=== PATIENT | male | born 1990 | race Caucasian/White ===

== ENCOUNTER 2019-12-08 12:13 | Emergency (ER) | payer OTHER ==
--- NOTE | 2019-12-08 14:09 | ED ---
Lower Extremity - HPI Summary HPI Summary: Patient is a 29 y/o M presenting to [facility] with complaints of left ankle pain. He reports that he was playing hockey and was reaching for a puck when he fell and injured his ankle. Patient is alert and oriented x3. On triage, pain is rated 7/10, nothing is noted to aggravate/alleviate Sx. Home medications and allergies are reviewed. - History of Current Complaint Chief Complaint: EDExtremityLower Stated Complaint: LT ANKLE INJ PER PT Time Seen by Provider: 12/08/19 13:48 Hx Obtained From: Patient Mechanism Of Injury: Fall From A Standing Position Onset of Pain: Prior to Arrival Onset/Duration: Still Present Severity Currently: Severe Pain Intensity: 7 Pain Scale Used: 0-10 Numeric Timing: Constant Location: Is Discrete @ - left ankle Aggravating Factor(s): Nothing Alleviating Factor(s): Nothing - Allergies/Home Medications Allergies/Adverse Reactions: Allergies Allergy/AdvReac Type Severity Reaction Status Date / Time Penicillins AdvReac See Comment Verified 12/08/19 12:25 PMH/Surg Hx/FS Hx/Imm Hx Sensory History: Denies: Hx Legally Blind, Hx Deafness Opthamlomology History: Denies: Hx Legally Blind EENT History: Denies: Hx Deafness Infectious Disease History: No Infectious Disease History: Denies: Traveled Outside the [place] in Last 30 Days - Family History Known Family History: Negative: Seizure Disorder - Social History Alcohol Use: Occasionally Substance Use Type: Reports: None Smoking Status (MU): Never Smoked Tobacco Review of Systems Musculoskeletal: Other - positive - left ankle pain, fall Neurological: Other - negative - AMS All Other Systems Reviewed And Are Negative: Yes Physical Exam - Summary Physical Exam Summary: VITAL SIGNS: Reviewed. GENERAL: Patient is a well-developed and nourished male who is lying comfortable in the stretcher. Patient is not in any acute respiratory distress. HEAD AND FACE: No signs of trauma. No ecchymosis, hematomas or skull depressions. No sinus tenderness. EYES: PERRLA, EOMI x 2, No injected conjunctiva, no nystagmus. EARS: Hearing grossly intact. Ear canals and tympanic membranes are within normal limits. MOUTH: Oropharynx within normal limits. NECK: Supple, trachea is midline, no adenopathy, no JVD, no carotid bruit, no c- spine tenderness, neck with full ROM. CHEST: Symmetric, no tenderness at palpation. LUNGS: Clear to auscultation bilaterally. No wheezing or crackles. CVS: Regular rate and rhythm, S1 and S2 present, no murmurs or gallops appreciated. ABDOMEN: Soft, non-tender. No signs of distention. No rebound, no guarding, and no masses palpated. Bowel sounds are normal. EXTREMITIES: Tenderness of the left lateral malleolus with decreased ROM secondary to pain. NEURO: Alert and oriented x 3. No acute neurological deficits. Speech is normal and follows commands. SKIN: Dry and warm. Triage Information Reviewed: Yes Vital Signs On Initial Exam: Initial Vitals Temp Pulse Resp BP Pulse Ox 100.4 F 94 16 110/73 99 12/08/19 12:21 12/08/19 12:21 12/08/19 12:21 12/08/19 12:21 12/08/19 12:21 Vital Signs Reviewed: Yes Procedures - Sedation Patient Received Moderate/Deep Sedation with Procedure: No Diagnostics - Vital Signs Vital Signs Temp Pulse Resp BP Pulse Ox 12/08/19 12:21 100.4 F 94 16 110/73 99 - Laboratory Lab Statement: Any lab studies that have been ordered have been reviewed, and results considered in the medical decision making process. - Radiology LEFT ANKLE X-RAY Radiology Interpretation Completed By: Radiologist Summary of Radiographic Findings: LEFT ANKLE X-RAY IMPRESSION: Some soft tissue swelling with no fracture identified. THIS REPORT WAS REVIEWED BY ED PHYSICIAN. LEFT FOOT X-RAY Radiology Interpretation Completed By: Radiologist Summary of Radiographic Findings: LEFT FOOT X-RAY IMPRESSION: NO FRACTURE IDENTIFIED. THIS REPORT WAS REVIEWED BY ED PHYSICIAN. Lower Extremity Course/Dx - Course Assessment/Plan: Patient is a 29 y/o M presenting to [facility] with complaints of left ankle pain. He reports that he was playing hockey and was reaching for a puck when he fell and injured his ankle. Patient is alert and oriented x3. On triage, pain is rated 7/10, nothing is noted to aggravate/alleviate Sx. Home medications and allergies are reviewed. Ankle x-ray impression: Soft tissue swelling without fracture or dislocation. Foot the x-ray impression: No fracture identified. In the ED course the patient was given ibuprofen. The patient was placed in Ciro bandage and gel cast and given crutches and discharged home with follow-up primary care physician. Patient is hemodynamically stable alert and oriented 3. - Diagnoses Differential Diagnosis/HQI/PQRI: Positive: Fracture (Closed), Sprain, Strain Provider Diagnoses: Left ankle sprain Discharge ED - Sign-Out/Discharge Documenting (check all that apply): Patient Departure - discharge - Discharge Plan Condition: Stable Disposition: HOME Patient Education Materials: Ankle Sprain (ED) Referrals: [facility] - Ariel KING [Primary Care Provider] - 3 Days Additional Instructions: PLEASE RETURN TO ED FOR ANY NEW OR WORSENING SYMPTOMS. PLEASE FOLLOW UP WITH YOUR PRIMARY CARE PHYSICIAN WITHIN THREE DAYS. - Billing Disposition and Condition Condition: STABLE Disposition: Home - Attestation Statements Document Initiated by Eulogioibe: Yes Documenting Scribe: NATALIIA OVIEDO Provider For Whom Alexandra is Documenting (Include Credential): CLIFTON CASEY MD Scribe Attestation: NATALIIA Kat, scribed for CLIFTON CASEY MD on 12/08/19 at 2133. Scribe Documentation Reviewed: Yes Provider Attestation: The documentation as recorded by the NATALIIA prakash accurately reflects the service I personally performed and the decisions made by CLIFTON garcia MD Status of Scribe Document: Viewed
[2019-12-08] MEDS ORDERED: Ibuprofen TAB* 800 MG PO ONE (14:14)
[2019-12-08 16:30] VITALS: BP 118/72
== END 2019-12-08 16:28 | disposition home or self-care (01) ==
LOC: ED 12:13
DX: S93.402A Sprain of unspecified ligament of left ankle, initial encounter (principal); W18.30XA Fall on same level, unspecified, initial encounter; Y93.22 Activity, ice hockey; Y92.330 Ice skating rink (indoor) (outdoor) as the place of occurrence of the external cause; Z88.0 Allergy status to penicillin
CPT/HCPCS: 99282; A9270-GY